=== PATIENT | female | born 1985 ===

== ENCOUNTER 2017-02-22 10:23 | Emergency (ER) | payer MEDICAID, OTHER ==
[2017-02-02 13:09] VITALS: BMI 43.2
--- NOTE | 2017-02-22 11:35 | OBHP ---
Datetime: 02/22/2017 11:27 IP Adm Impression: , intrauterine ; No Active Labor IP Admit Plan: Discharge home Admit Comment, IP Provider: chief complaint- evaluation HPI 31 y/o female at 36 weeks and 6 days with hx of previous csection sent over from clinic for fe robert evaluation Patient denies nausea, vomiting, chest apin, shortness of breath Patient states that she feels soem discomfort when she walks but improves with rest. Exam VSS Afebrile FHT reactive Tooc no ctx Abdomen soft; no rebound or guarding.On eaxm reporst discofmort at site of pubic symphysis when sh e walks A/P Patient at 36.6 wga here for NST.Discomfort due to pubic symphysis separation.no contractions on monitor.no active labor -nst reactive -patient discharghed home -follow up in clinic next week -patient given active labor, decraesed movement precuations Pelvic Type - PN: Adequate Extremities - PN: Normal Abdomen - PN: Normal Back - PN: Normal Lungs - PN: Normal Heart - PN: Normal General - PN: Normal Vital Signs Provider: Reviewed; Within Normal Limits IP Chief Complaint: Other FHR Category Provider Fetus A: Category I Dilatation, Provider: 0 DTRs - PN: Normal
[2017-02-22 12:15] VITALS: BP 94/59; PULSE 83; RESP 18; TEMP 97; O2SAT 100
== END 2017-02-22 11:55 | disposition home or self-care (01) ==
LOC: C.EROB 10:23
DX: Z36 Encounter for antenatal screening of mother (principal)

== ENCOUNTER 2017-03-09 08:47 | Inpatient (IN) | payer MEDICAID ==
[2017-03-10 06:12] VITALS: BMI 42.4
[2017-03-10] MEDS ORDERED: Lactated Ringer's 1,000 ML IV ONE (06:13)
--- NOTE | 2017-03-10 06:55 | OBADHP ---
Datetime: 03/10/2017 06:42 Admit Comment, IP Provider: 31 y.o. LMP 05/24/16, NIDIA 03/16/17. EGA 39w 1d presents for repe at C/S. (+) AFM; denies LOF, VB; (+) Ctx tim and off x 1 week. care: [facility] - per patient no issues. 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 With FOB x 2 years; lives with hm and son. Unemp loyed Fam Hx: Mother alive 47 y.o.; Father alive 49 y.o. - both, no med issues. No known fam h/o cancer P.E.: as above. Obese, in NAD. Awake, alert, oriented to time, person and place. Pleasant and coop erative Assessment: 31 y.o. P1, 39w 1d, prev C/S for elective C/S. Category 1 tracing. Patient last ate 20 00 hour and drank 2140 hours 03/09/17. Patient is clinically stable. Plan: 1) Admit 2) NPO 3) Admisssion labs 4) Continuous EFM 5) Silverio 6) Abdominal prep and shave 7) Mefoxin chief controller to O.R. 8) Notify peds 9) Notify anesthesia 10) Critical Care Unit Nurse to O.R. Pelvic Type - PN: Adequate Extremities - PN: Normal Abdomen - PN: Normal Back - PN: Normal Breast - PN: Not Done Lungs - PN: Normal Heart - PN: Normal Thyroid - PN: Not Done Neurologic - PN: Normal HEENT - PN: Normal General - PN: Normal Presentation-Admit: Vertex FHR - Baseline A Provider: 140 Contraction Comments Provider: none Comments, ACOG Physical Exam: Abdomen: Soft. Gravid. Healed Pfannenstiel scar. Fundal height 40cm All other systems reviewed and are negative Gestation - Est Wks by US: 39w 1d IP Hx Assessment: The History has been Reviewed and is Current Vital Signs Provider: Reviewed IP Chief Complaint: Scheduled Section NICHD Variability Prov Fetus A: Moderate 6-25bpm NICHD Accel Fetus A IP Provider: [id number] FHR Category Provider Fetus A: Category I NICHD Decel Fetus A IP Provider: None Dilatation, Provider: 2 Effacement, Provider: 30 Station, Provider: -3 Genitourinary Exam: Normal DTRs - PN: Not Done EGA AdmitDate IP: 39.1 IP Adm Impression: Term, intrauterine ; No Active Labor; Ruptured Membranes IP Admit Plan: Admit to unit; Initiate Section protocol
[2017-03-10] MEDS ORDERED: Sodium Citrate/Citric Acid 15 ml Sol PO ONE (07:00)
[2017-03-10 07:14] LABS: RBC URINE < 1 /hpf (0-3); URINE BACTERIA RARE (<OCC); URINE BILIRUBIN NEGATIVE (NEGATIVE); URINE BLOOD NEGATIVE (NEGATIVE); URINE COLOR Yellow (YELLOW); URINE GLUCOSE (UA) NORMAL (Normal); URINE KETONE NEGATIVE (NEGATIVE); URINE LEUKOCYTE ESTERASE TRACE Leu/uL (Negative); URINE PROTEIN NEGATIVE (NEGATIVE); URINE UROBILINOGEN NORMAL mg/dL (0.2-1.0); WBC URINE 2 /hpf (0-5)
[2017-03-10 07:21] LABS: HEMATOCRIT 35.5 % (34.0-47.0); MEAN CELL VOLUME 87.1 fL (81.0-99.0); MEAN CORPUSCULAR HEMOGLOBIN 30.4 pg (27.0-31.0); MEAN CORPUSCULAR HGB CONC 34.9 g/dL (33.0-37.0); MEAN PLATELET VOLUME 9.6 fL (7.2-11.7); RED CELL DISTRIBUTION WIDTH 13.6 % (11.5-14.5); WHITE BLOOD COUNT 9.8 K/uL (4.8-10.8)
[2017-03-10] MEDS ORDERED: Sodium Citrate/Citric Acid 15 ml Sol ONE (07:22)
[2017-03-10] MEDS ORDERED: cefOXitin IV 2 gm in Dextrose 2 GM/50 ML BAG IVPB ONE ×2 (07:24→07:28)
[2017-03-10 07:46] LABS: ALB/GLOB RATIO 0.9 (1.0-2.1); ALKALINE PHOSPHATASE 202 U/L (38-126); ALT/SGPT 24 U/L (9-52); AST/SGOT 21 U/L (14-36); BILIRUBIN,TOTAL 0.9 mg/dL (0.2-1.3); BLOOD UREA NITROGEN 7 mg/dL (7-17); CALCIUM 8.7 mg/dl (8.6-10.4); CARBON DIOXIDE 20 mmol/L (22-30); CHLORIDE 105 mmol/L (98-107); GFR AFRICAN-AMERICAN > 60; GLUCOSE,RANDOM 95 mg/dL (65-105); POTASSIUM 3.8 mmol/L (3.6-5.2); SODIUM 137 mmol/L (132-148); TOTAL PROTEIN 6.4 g/dL (6.3-8.3)
[2017-03-10] MEDS ORDERED: Morphine 1 mg/ml preservative-free Inj(Duramorph) ONE (07:51)
[2017-03-10] MEDS ORDERED: Oxytocin 20 units in LR 2,000 ML IV ONE (07:51)
[2017-03-10] MEDS ORDERED: Oxytocin 10 Units/ml Inj ONE (07:51)
[2017-03-10] MEDS ORDERED: Oxycodone/Acetaminophen 5/325 mg Tab PO PRN ×2 (07:59)
--- NOTE | 2017-03-10 08:03 | PCM.SURG1 ---
Surgeon's Initial Post Op Note - Surgeon's Notes Surgeon: dr harris C.O.D. Clerk: dr caputo Type of Anesthesia: Spinal Anesthesia Administered By: dr sanabria Pre-Operative Diagnosis: 31 yr at 39weeks previous section Operative Findings: see the op report Post-Operative Diagnosis: same Operation Performed: repeat sectiion Specimen/Specimens Removed: cord blood. placente Estimated Blood Loss: EBL {In ML}: 800 Blood Products Given: N/A Drains Used: No Drains Post-Op Condition: Good Date of Surgery/Procedure: 03/10/17 Time of Surgery/Procedure: 08:30
[2017-03-10] MEDS ORDERED: DiphenhydrAMINE 50 mg/ml Inj IVP PRN (09:24)
[2017-03-10] MEDS ORDERED: DiphenhydrAMINE 50 mg/ml Inj ONE (09:53)
[2017-03-10] MEDS: Simethicone 80 mg Chewtab PO SCH ×3 (16:46→21:23)
[2017-03-10] MEDS ORDERED: DiphenhydrAMINE 50 mg/ml Inj IVP STA (20:36)
--- NOTE | 2017-03-11 07:47 | OP ---
PROCEDURE DATE: 03/10/2017 PREOPERATIVE DIAGNOSIS: A 31-year-old 2, para 1 at 39 weeks, for scheduled for repeat section. POSTOPERATIVE DIAGNOSIS: A 31-year-old 2, para 1 at 39 weeks, for scheduled for repeat section. SURGEON: Dr. Peters. OCEAN LIFEGUARD SPECIALIST: Dr. Kc, who was present throughout the surgery for exposure, retraction, pushing at the time of delivery. TYPE OF ANESTHESIA: Spinal. ANESTHESIOLOGIST: Dr. Reyes. COMPLICATIONS: None. ESTIMATED BLOOD LOSS: 800 mL OPERATION PERFORMED: Repeat section. DESCRIPTION OF PROCEDURE: After informed consent was obtained, the patient was brought to the operating room, placed on the table, where spinal anesthesia was given. When anesthesia was found to be sufficient, she was prepped and draped in normal sterile fashion. Then supporting over the Bovie, the fascia was excised on both the sides using curved Herring scissors. The fascia was first from the site of the umbilicus and then at the side of the pubic bone. Rectus muscle was lift up with two Allis and then with a knife, then the peritoneum was lifted up, but they were taken with the peritoneum, was taken out by the Allis and then it was cut with the Metzenbaum. It was resected down. Then the bladder blade was placed, bladder flap was created. Lower uterine segment incision was made with a knife, the lower *------* cut with the knife and both the sides using curved Herring scissors. Baby delivered in ARYA position. Cord was clamped and cut. Baby was handed to the awaiting electric fan assembler. After that, uterus was exteriorized and cleared of all the clots and debris, placenta delivered manually. A lot of massage was done. Pitocin was given. Then, uterine incision was closed with #1 Vicryl running interlocking fashion. Second layer was closed with the same stitch. Cul-de-sac was cleared of all the clots and debris. Uterus was returned back to the abdominal cavity *------* normal, then *------* was placed. Peritoneum was closed using 2-0 Vicryl in running interlocking fashion. Muscle was closed using 2-0 Vicryl in running interlocking fashion. Fascia was closed using #1 Vicryl in running interlocking fashion. Subcutaneous tissue was closed with 0 Vicryl in interrupted fashion. Skin was closed using david. The patient tolerated the procedure well. Lap, sponge, and instrument counts were correct x2. Pancho Peters MD
[2017-03-11] MEDS ORDERED: Bisacodyl 5mg EC Tab PO ONE (08:01)
[2017-03-11 08:21] LABS: HEMATOCRIT 33.6 % (34.0-47.0); MEAN CELL VOLUME 87.7 fL (81.0-99.0); MEAN CORPUSCULAR HEMOGLOBIN 29.4 pg (27.0-31.0); MEAN CORPUSCULAR HGB CONC 33.5 g/dL (33.0-37.0); MEAN PLATELET VOLUME 9.8 fL (7.2-11.7); RED CELL DISTRIBUTION WIDTH 13.7 % (11.5-14.5); WHITE BLOOD COUNT 14.5 K/uL (4.8-10.8)
[2017-03-11] MEDS: Simethicone 80 mg Chewtab PO SCH ×4 (10:20→22:22)
--- NOTE | 2017-03-11 13:42 | OBPPN ---
Datetime: 03/11/2017 11:18 PP Pain Prov: Within normal limits PP Nausea Prov: Denies PP Flatus Prov: Yes PP BM Prov: No PP Heart Prov: Normal PP Lungs Prov: Normal PP Abdomen/Uterus Prov: Normal PP Vulva/Perineum Prov: Normal PP CVA Tenderness Prov: Normal PP C/S Incision Prov: Normal PP Progress Prov: Normal PP Impression Prov: Normal progression PP Plan Prov: Continue present management PP Progress Note Prov: S-patient denies any compalints.reports that pain siw ell controlled.tolerati ng diet.ambulating and voiding without difficulty.Passing flatus O-VSS Afebrile Fundus firm and below umbiclisu dressing celan,d ry and intact extremities no calf tenderness A/P Patient /p cscetion pod 1 doing well -continue routine post op care Vital Signs Provider PP: Reviewed; Within Normal Limits
[2017-03-12 08:14] VITALS: RESP 18
[2017-03-12] MEDS: Simethicone 80 mg Chewtab PO SCH ×4 (09:30→22:18)
--- NOTE | 2017-03-12 14:24 | OBPPN ---
Datetime: 03/12/2017 14:12 PP Pain Prov: Within normal limits PP Nausea Prov: Denies PP Flatus Prov: Yes PP BM Prov: Yes PP Breasts Prov: Normal PP Heart Prov: Normal PP Lungs Prov: Normal PP Abdomen/Uterus Prov: Normal PP Lochia Prov: Normal PP Vulva/Perineum Prov: Not Done PP CVA Tenderness Prov: Normal PP Extremities Prov: Normal PP C/S Incision Prov: Normal PP Progress Prov: Normal PP Comments Phys Exam Prov: Breasts: large, symmetric; no cracked nipples Abdomen: Obese. Soft, non distended. Fundus firm, mobile, non tender, 3 FB below umbilicus. Incisi on with david - clean, dry and intact. Mild lochia rubra Extremities: (+) LE edema; no calf tenderness. All other systems reviewed and are negative. PP Impression Prov: Normal progression PP Plan Prov: Continue present management PP Progress Note Prov: Patient received in chair; no complaints: Breast- and bottlefeeding. Ambulati ng and voiding without difficulty. Denies nausea, vomiting. P.E.: as above. Obese, in NAD. Awake, alert, oriented to time, person and place. Pleasant and implementation project coordinator perative. , infant and first daughter also present. - POD#1 H/H 11.3/33.6; Rh (+) Assessment: POD#2, 31 P2, S/P repeat LTCS. Afebrile, vital signs stable. Returning GI and func tions. Clinically stable. Plan: 1) Continue present management 2) Anticipate discharge home 03/13/17 Vital Signs Provider PP: Reviewed; Within Normal Limits
--- NOTE | 2017-03-13 07:23 | OBDCSUM ---
Datetime: 03/13/2017 07:21 Discharged to, Provider: Home Follow up at, Provider: Clinic Disch Instr Activity: Normal activity Disch Instr Diet: Regular Discharge Instructions, Provider: Routine instructions given Discharge Diagnosis, Provider: Term Delivered Discharge Time: 03/13/2017 11:00 Follow up in weeks, Provider: 1 week Disch Referrals: None Contraception discussed, Prov: Yes Disch Activity Restrictions: No exercising; No sexual activity; Nothing in vagina - [place] Discharge Comment, Provider: If temperature greater than 100.4, heavy bleeding more than 2 pads/ radhames rs, pain, dizzyness, headachse, lighthteadness, CP, SOB, nause, vomiting to nearest ER and call MD Contraception after Delivery: Not Planning to Use
--- NOTE | 2017-03-13 07:29 | OBPPN ---
Datetime: 03/13/2017 07:23 PP Pain Prov: Within normal limits PP Nausea Prov: Denies PP Flatus Prov: Yes PP Breasts Prov: Normal PP Heart Prov: Normal PP Lungs Prov: Normal PP Abdomen/Uterus Prov: Normal PP Lochia Prov: Normal PP Vulva/Perineum Prov: Normal PP CVA Tenderness Prov: Normal PP Extremities Prov: Normal PP C/S Incision Prov: Normal PP Progress Prov: Normal PP Comments Phys Exam Prov: Gen: NAD, AAOx 3 Resp: CTAB/l CVS: RRR, +S1/S2 Breasts: large, symmetric; no cracked nipples, non tender, non engoarged Abdomen: Obese. Soft, non distended. Non tender, no guarding, no reboudn tenderness, no rigidity Fundus firm, non tender, below umbilicus. VE: minimal lochia, non foul smelling Incision with david - clean, dry and intact. Extremities: (+) LE edema +1; no calf tenderness, negative homans sign All other systems reviewed and are negative. PP Impression Prov: Normal progression PP Plan Prov: Discharge PP Progress Note Prov: Pt seen and examined and reports feeling well. Pt reports pain is controlled with pain medicatin. Pt denies any headaches, fevers, chills, nause, vomiting, CP, SOB. pt is abulati ng, voiding, passing flatus, +BM, breast feedign and deies any feelings of sadness or depression. pt reprots she has good social support. VSS PE: Gen: NAD, AAOx 3 Resp: CTAB/l CVS: RRR, +S1/S2 Breasts: large, symmetric; no cracked nipples, non tender, non engoarged Abdomen: Obese. Soft, non distended. Non tender, no guarding, no reboudn tenderness, no rigidity Fundus firm, non tender, below umbilicus. VE: minimal lochia, non foul smelling Incision with david - clean, dry and intact. Extremities: (+) LE edema +1; no calf tenderness, negative homans sign All other systems reviewed and are negative. A/P s/p PLTCS POD #3 doing well, stable for discharge d/c home f/u clinic 1 week for incisin check Precautions given IP PP Procedures: None Vital Signs Provider PP: Reviewed; Within Normal Limits
[2017-03-13 08:25] VITALS: BP 120/68; PULSE 83; O2SAT 100
[2017-03-13] MEDS: Simethicone 80 mg Chewtab PO SCH (09:16)
[2017-03-13 15:41] VITALS: TEMP 98
--- NOTE | 2017-03-23 06:59 | OBDS ---
DELIVERY PERSONNEL Delivery Doctor: Pancho Peters MD Scrub Nurse: Joan Beavers Polish Maker: Jia Ventura RN Anesthesiologist: Nba Reyes MD MATERNAL INFORMATION Delivery Anesthesia: Spinal Estimated Blood Loss (ml): 800 Placenta Cultured: No Maternal Complications: None RN Comments: post status repeat , liveborn baby boy, 9/9, mom and baby stable conditi on Provider Comments: baby deliverd in [place]. end clean no com LABOR SUMMARY EDC: 03/16/2017 00:00 LABOR INFORMATION Group B Beta Strep: Negative STAGES OF LABOR Stage 3 hrs: 0 Stage 3 min: 1 CSECTION DELIVERY Primary Indication: Repeat Elective Secondary Indication: Repeat Elective CSection Urgency: Elective CSection Incidence: Repeat BABY A INFORMATION Delivery Date/Time: 03/10/2017 08:24 Method of Delivery: Born in Route : No : N/A Forceps: N/A Vacuum Extraction: N/A Shoulder Dystocia : No SHOULDER DYSTOCIA BABY A Delivery Date/Time: 03/10/2017 08:24 PRESENTATION/POSITION BABY A Presentation: Cephalic Cephalic Presentation: Vertex Vertex Position: Left Occipital Anterior Breech Presentation: N/A PLACENTA INFORMATION BABY A Placenta Delivery Time : 03/10/2017 08:25 Placenta Method of Delivery: Manual Removal Placenta Status: Delivered SCORES BABY A Heart Rate 1 min: >100 bpm Resp Effort 1 min: Good Cry Reflex Irritability 1 min: Cough or Sneeze or Pulls Away Muscle Tone 1 min: Active Motion Color 1 min: Body [place], Extremities Blue Resuscitation Effort 1 min: Tactile Stimulation SCORE 1 MIN: 9 Heart Rate 5 min: >100 bpm Resp Effort 5 min: Good Cry Reflex Irritability 5 min: Cough or Sneeze or Pulls Away Muscle Tone 5 min: Active Motion Color 5 min: Body [place], Extremities Blue Resuscitation Effort 5 min: N/A SCORE 5 MIN: 9 INFANT INFORMATION BABY A Gestational Age at Delivery: 39.1 Gestational Status: Term Infant Outcome : Liveborn Condition : Stable Sex: Male IDENTIFICATION/MEDS BABY A ID Band Number: [id number] ID Band Location: Left Leg; Left Arm Sensor Applied: Yes Sensor Number: [id number] Sensor Location : Cord Clamp Vitamin K Given : Not Given Erythromycin Given: Not Given WEIGHT/LENGTH BABY A Birthweight (gms): 3315 Infant Weight (lb): 7 Infant Weight (oz): 5 Infant Length Inches: 18.50 Length cms: 47.0 CORD INFORMATION BABY A No. Cord Vessels: 3 Nuchal Cord : Around Neck x1, Loose Cord Blood Taken: Yes Infant Suction: Mouth; Nose
== END 2017-03-13 11:41 | disposition home or self-care (01) | DRG 371 ==
LOC: C.4D 08:47 → UNDOADMIN 08:47 → C.4D 03-10 05:48 → C.4M 03-10 13:03
PROVIDERS: ADMIT Obstetrics & Gynecology; ATTEND Obstetrics & Gynecology
PROC: 10D00Z1 Extraction of Products of Conception, Low, Open Approach (ICD-10-PCS; principal; 2017-03-10)
DX: O34.211 Maternal care for low transverse scar from previous cesarean delivery (principal); O99.214 Obesity complicating childbirth; E66.9 Obesity, unspecified; Z3A.39 39 weeks gestation of pregnancy; Z37.0 Single live birth

== ENCOUNTER 2018-12-04 09:27 | Outpatient (CLI) | payer OTHER | END 2018-12-04 09:28 | disposition home or self-care (01) | LOC: C.LAB 09:27 | DX: Z3A.35 35 weeks gestation of pregnancy (principal) ==

== ENCOUNTER 2018-12-11 09:23 | Outpatient (CLI) | payer OTHER | END 2018-12-11 09:24 | disposition home or self-care (01) | LOC: C.LAB 09:23 | DX: Z3A.36 36 weeks gestation of pregnancy (principal) ==

== ENCOUNTER 2018-12-26 07:26 | Inpatient (IN) | payer MEDICAID, OTHER, SELFPAY ==
[2018-12-26 07:47] VITALS: BMI 42.8
[2018-12-26] MEDS ORDERED: Lactated Ringer's 1,000 ML IV ONE (07:47)
[2018-12-26] MEDS ORDERED: cefOXitin IV 2 gm in Dextrose 2 GM/50 ML BAG IVPB ONE ×2 (07:47→08:31)
[2018-12-26] MEDS ORDERED: Sodium Citrate/Citric Acid 15 ml Sol PO ONE (07:47)
[2018-12-26 08:05] LABS: BASO % 0.3 % (0.0-2.0); EOS # 0.2 K/uL (0.0-0.7); HEMOGLOBIN 13.1 g/dL (11.0-16.0); LYMPH # 2.7 K/uL (1.0-4.3); LYMPH % 30.9 % (20.0-40.0); MEAN CELL VOLUME 89.9 fL (81.0-99.0); MEAN CORPUSCULAR HEMOGLOBIN 31.6 pg (27.0-31.0); MEAN CORPUSCULAR HGB CONC 35.2 g/dL (33.0-37.0); MEAN PLATELET VOLUME 10.2 fL (7.2-11.7); MONO # 0.6 K/uL (0.0-0.8); MONO % 7.2 % (0.0-10.0); NEUT # 5.3 K/uL (1.8-7.0); NEUT % 59.6 % (50.0-75.0); NRBC % 0.1 % (0.0-2.0); RBC 4.14 Mil/uL (3.80-5.20); RED CELL DISTRIBUTION WIDTH 14.1 % (11.5-14.5); WHITE BLOOD COUNT 8.9 K/uL (4.8-10.8)
[2018-12-26 08:21] LABS: SQUAMOUS EPITHIAL 12 /hpf (0-5); URINE BILIRUBIN NEGATIVE (NEGATIVE); URINE BLOOD NEGATIVE (NEGATIVE); URINE CLARITY Hazy (Clear); URINE COLOR Yellow (YELLOW); URINE GLUCOSE (UA) NORMAL (Normal); URINE LEUKOCYTE ESTERASE NEG Leu/uL (Negative); URINE PROTEIN NEGATIVE (NEGATIVE); URINE UROBILINOGEN NORMAL mg/dL (0.2-1.0)
[2018-12-26] MEDS ORDERED: Sodium Citrate/Citric Acid 15 ml Sol ONE (08:31)
[2018-12-26] MEDS ORDERED: Oxytocin 20 units in LR 2,000 ML IV ONE (08:31)
[2018-12-26] MEDS ORDERED: Morphine 1 mg/ml preservative-free Inj(Duramorph) ONE (11:47)
[2018-12-26] MEDS ORDERED: BUPIVACAINE 0.125%/0.9% NACL 600 ML IJ ONE (12:30)
[2018-12-26] MEDS ORDERED: Lidocaine 2% MPF (5 ml) Inj ONE ×3 (13:09→13:22)
[2018-12-26] MEDS ORDERED: Phenylephrine 10 mg/ml Inj ONE (13:17)
--- NOTE | 2018-12-26 17:25 | OBDS ---
DELIVERY PERSONNEL Delivery Doctor: Director Of Sports Medicine: Lavonne Shabazz RN Anesthesiologist: MATERNAL INFORMATION Delivery Anesthesia: Spinal Medications in Delivery: Mefoxin 2 gms ivpb Estimated Blood Loss (ml): 600 Placenta Cultured: No Maternal Complications: None RN Comments: Repeat LTC/S @1236 a live male attended by Uyen Vazquez.Dried immediately,stimula te 9/9 No abnormalities noted Provider Comments: Repeat LTC C/S with delivery of a viable male from JAVI position and witho ut complications. Apgars 9_9 at 1 and 5 minutes repectively and BW of 7lbs, 6 oz. Cord Blood and cord PH obtained and sent. Placenta with 3 VC manually delivered and discarded Bilateral complete transection of Fallopian Tubes with Ligatures and sent to Pathology. ARYA. EBL 600 mls On-Q [place] was inserted x 2 and without complications and working well Pt and tolerated the procedure well and remained in OR room in S_S condition Dr. Kc was present throughout the entire procedure as an mortgage loan assistant as well as Dr. Recinos, Res ident and Med Student Wilmer Giraldo. LABOR SUMMARY EDC: 12/19/2018 00:00 No. Babies in Womb: 1 Attempted: No Labor Anesthesia: Intrathecal LABOR INFORMATION Reason for Induction: Not Applicable Oxytocin: N/A Group B Beta Strep: Done, Result Unknown Antibiotics # of Doses: 1 Steroids Given: None Reason Steroids Not Administered: Not Applicable MEMBRANES Membranes Rupture Method: Artificial Rupture of Membranes: 12/26/2018 12:35 Length of Rupture (hrs): 0.02 Amniotic Fluid Color: Clear Amniotic Fluid Amount: Moderate Amniotic Fluid Odor: Normal STAGES OF LABOR Stage 3 hrs: 0 Stage 3 min: 1 CSECTION DELIVERY Primary Indication: Repeat Elective Secondary Indication: BTL CSection Urgency: Elective CSection Incidence: Repeat Labor: No Labor Elective: Elective CSection Incision: Lower Uterine Transverse BABY A INFORMATION Delivery Date/Time: 12/26/2018 12:36 Method of Delivery: Born in Route : No : N/A Forceps: N/A Vacuum Extraction: N/A Shoulder Dystocia : No SHOULDER DYSTOCIA BABY A Infant Delivery Date/Time: 12/26/2018 12:36 PRESENTATION/POSITION BABY A Presentation: Cephalic Cephalic Presentation: Vertex Vertex Position: Right Occipital Anterior Breech Presentation: N/A PLACENTA INFORMATION BABY A Placenta Delivery Time : 12/26/2018 12:37 Placenta Method of Delivery: Manual Removal Placenta Status: Delivered SCORES BABY A Heart Rate 1 min: >100 bpm Resp Effort 1 min: Good Cry Reflex Irritability 1 min: Cough or Sneeze or Pulls Away Muscle Tone 1 min: Active Motion Color 1 min: Body [place], Extremities Blue SCORE 1 MIN: 9 Heart Rate 5 min: >100 bpm Resp Effort 5 min: Good Cry Reflex Irritability 5 min: Cough or Sneeze or Pulls Away Muscle Tone 5 min: Active Motion Color 5 min: Body [place], Extremities Blue SCORE 5 MIN: 9 INFORMATION BABY A Gestational Age at Delivery: 41.0 Gestational Status: Term Outcome : Liveborn Infant Condition : Stable Infant Sex: Male IDENTIFICATION/MEDS BABY A ID Band Number: [id number] Sensor Number: [id number] WEIGHT/LENGTH BABY A Infant Birthweight (gms): 3335 Infant Weight (lb): 7 Weight (oz): 6 Infant Length Inches: 19.00 Infant Length cms: 48.3 CORD INFORMATION BABY A No. Cord Vessels: 3 Nuchal Cord : Around Neck x1, Loose Infant Cord pH Baby Venous: yes Cord Blood Taken: Yes Suction: Mouth; Nose
[2018-12-26] MEDS: cefOXitin IV 2 gm in Dextrose 2 GM/50 ML BAG IVPB SCH (20:50)
[2018-12-26] MEDS: Docusate-Senna 50 mg-8.6 mg Tab PO SCH (22:08)
[2018-12-26] MEDS: Simethicone 80 mg Chewtab PO SCH (22:08)
[2018-12-27] MEDS: cefOXitin IV 2 gm in Dextrose 2 GM/50 ML BAG IVPB SCH (03:12)
[2018-12-27] MEDS ORDERED: DiphenhydrAMINE 50 mg/ml Inj IVP STA ×3 (06:34→10:09)
[2018-12-27] MEDS ORDERED: DiphenhydrAMINE 50 mg/ml Inj ONE (06:53)
[2018-12-27 08:18] LABS: HEMOGLOBIN 12.5 g/dL (11.0-16.0); MEAN CELL VOLUME 89.8 fL (81.0-99.0); MEAN CORPUSCULAR HEMOGLOBIN 31.2 pg (27.0-31.0); MEAN CORPUSCULAR HGB CONC 34.8 g/dL (33.0-37.0); RED CELL DISTRIBUTION WIDTH 13.9 % (11.5-14.5); WHITE BLOOD COUNT 12.1 K/uL (4.8-10.8)
[2018-12-27] MEDS: Prenatal Multivit/Folic Acid/Iron Tab PO SCH (10:07)
[2018-12-27] MEDS: Simethicone 80 mg Chewtab PO SCH ×3 (10:07→17:20)
--- NOTE | 2018-12-27 22:28 | OBPPN ---
Datetime: 12/27/2018 14:23 PP Pain Prov: Within normal limits PP Nausea Prov: Denies (Annotations: Data stored by CPN on behalf of user) PP Flatus Prov: Yes PP BM Prov: No PP Breasts Prov: Not Done PP Heart Prov: Normal PP Lungs Prov: Normal PP Abdomen/Uterus Prov: Normal PP Lochia Prov: Not Done PP Vulva/Perineum Prov: Not Done PP CVA Tenderness Prov: Not Done PP Extremities Prov: Normal PP C/S Incision Prov: Normal PP Progress Prov: Normal PP Impression Prov: Normal progression; difficulties; Pain PP Plan Prov: Continue present management PP Progress Note Prov: Patient is a 33 y/o female who is postop day 1 s/p scheduled repeat cesarian and tubal ligation. Patient is feeling well today, but patient reports pain 4/10 in severity worse with movement. Patient used 4-5x pads overnight and states bleeding less today. Theodora yuan was able to get up to urinate and is passing flatus. Patient is ambulating around her room and need ed encouragement to use the incentive spirometer. Patient is on a liquid diet and tolerating it well. Patient reports pain and difficulty getting baby to latch and has been bottle feeding exclusively. P atient denies nausea/vomiting, diarrhea/constipation, dizziness, and headache. Vitals: T 98.3, HR 72, BP 113/76, RR 18, O2 sat 97% on room air Gen rosemarie: NAD, AAOx3 Cardio: RRR, +s1, +s2, no murmurs/gallops/rubs Resp: CTA +b/l, no r/r/w Abd: soft, tender, firm uterus, bowel sounds present in all 4 quadrants Ext: no edema, no calf tenderness Fundus: 19cm Labs: Hb 12.5, hct 35.9 , WBC 12.1, platelets 200, and Rh + Assessment postop day 1 s/p scheduled repeat cesarian with tubal ligation. Pt hemodynamically stable. Vital signs stable. Plan 1. Encourage pt to ambulate and use incentive spirometer. 2. Encouraged breast feeding with help of professional services consultant. 3. Encourage PO fluids. Patient seen and case discussed with Dr. Gokul Velazquez, OMS-III Attending Note: Patient seen, evaluated and examined by me with the medical student. I agree with the documentaiton as above. NB: patient using ON-Q fsystem for pain management - satisiying response. Incision with david - clean dry and intact. ON-Q sites - clean and non tender. Plan: 1) As above. Vital Signs Provider PP: Reviewed; Within Normal Limits
[2018-12-28 00:13] VITALS: RESP 20
[2018-12-28] MEDS: Prenatal Multivit/Folic Acid/Iron Tab PO SCH (10:34)
[2018-12-28] MEDS: Simethicone 80 mg Chewtab PO SCH ×4 (13:53→21:57)
--- NOTE | 2018-12-28 19:32 | OBPPN ---
Datetime: 12/28/2018 08:41 PP Pain Prov: Within normal limits PP Nausea Prov: Denies PP Flatus Prov: Yes (Annotations: Data stored by CPN on behalf of user) PP BM Prov: Yes PP Breasts Prov: Not Done PP Heart Prov: Normal PP Lungs Prov: Normal PP Abdomen/Uterus Prov: Normal PP Lochia Prov: Normal PP Vulva/Perineum Prov: Not Done PP CVA Tenderness Prov: Not Done PP Extremities Prov: Normal PP C/S Incision Prov: Normal PP Progress Prov: Normal PP Impression Prov: Normal progression; difficulties; Pain PP Plan Prov: Continue present management; consult PP Progress Note Prov: Pt is a 33 y/o female postop day 2 s/p scheduled repeat cesa cara and tubal ligation. Patient was laying in bed and feels well this morning. Patient reported a 6/ 10 in severity in pain that occurred last night and also pain in her L inguinal area. Patient reports 2 pad changes overnight. Patient is breast feeding and supplementing with formula because "the baby is still hungry". Patient denies nausea/vomiting, diarrhea, dizziness, headache, pruritis, and chest pain. Vitals: T 97.8 F BP 108/55 HR 75 RR 20 O2 sat 99% Gen rosemarie: NAD, AAOx3 Cardio: RRR, +s1, +s2. no murmurs/gallops/rubs Resp: CTA +b/l, no r/r/w Abd: soft, tender, firm uterus, bowel sounds present in all 4 quadrants Ext: no edema, no calf tenderness Fundus: 19 cm Assessment postop day 2 s/p repeat cesarian with tubal ligation. Pt is hemodynamically stable. Plan 1. Continue to increase PO water intake. 2. Encouraged ambulation and incentive spirometry. 3. Require patient education on nutrition. consult ordered 4. Advance care Trena Velazquez, OMS-III Pt seen and examined with Med Student Caroline and agreed with all of her findings, assessments and POC
[2018-12-28] MEDS: Docusate-Senna 50 mg-8.6 mg Tab PO SCH (21:57)
[2018-12-29] MEDS: Simethicone 80 mg Chewtab PO SCH (10:54)
[2018-12-29] MEDS: Prenatal Multivit/Folic Acid/Iron Tab PO SCH (10:54)
--- NOTE | 2018-12-29 18:19 | OBDCSUM ---
Datetime: 12/29/2018 12:05 Discharged to, Provider: Home Follow up at, Provider: VERITO Disch Instr Activity: May be up to bathroom; May be up for meals; May Shower Disch Instr Diet: Regular Discharge Instructions, Provider: Routine instructions given Discharge Diagnosis, Provider: Term Delivered Discharge Time: 12/29/2018 12:05 Follow up in weeks, Provider: 3-5 days Disch Referrals: None Disch Activity Restrictions: No sexual activity; Nothing in vagina - [place], tampons, douche Discharge Comment, Provider: 33F POD # 3 s/p C/s _ tubal ligation. Pt reports feeling well, passage of bowel movements, flatulence, minimal to no pain, denies N/V, F/C. Tolerating diet, ambulat ing. Vitals: 97.2 69 100/69 Gen: Atraumatic, normocephalic Cardio: S1, S2, no murmurs Resp: CTAL, B/L Abd: soft non tender, Onq in place, fundal height 2 finger below umbilicus A/P 33F PPD # 3 s/p C/s _ tubal ligation. Stable H/H, Pt is hemodynamically stable for dischar ge. OnQ removed with hemostasis obtained and band-aids placed over incision sites - stable for discharge with Rx's for Motrin and Percocet - instructions provided in [employer] Contraception after Delivery: Tubal Ligation
[2018-12-29 19:15] VITALS: BP 106/71; PULSE 73; TEMP 99; O2SAT 100
--- NOTE | 2019-01-01 19:09 | OBADHP ---
Datetime: 12/26/2018 08:23 Admit Comment, IP Provider: CC: Scheduled Caesarean Section HPI: Patient is a 33 year old at 41 weeks with NIDIA (12/31/18) and LMP ( 02/28/18), who presen ts to [facility] for scheduled repeat . Estimated gestational age is approx. 39 weeks 2 days. Jackelyn ent denies any vaginal bleeding, loss of fluid, cramping or contractions. Patient states that fetus i s moving. Patient reports increased urinary frequency (every 1/2 hour), and drinks approx. 4 16oz gla sses of water per day. Patient recieved her care at [facility] and pablo es any antepartum complications. OB Hx: 1. Male , term, , fail of induction at [facility], 8.5lbs, [facility] [place], no complications, 01/03/15 2. Male , term, , [facility], 7.5lbs, no complications, 03/02/17 No Hx of transfusion [employer] Hx: Menarche 13 years old Triad: 11/Irregular period intervals (1mo - 3mo)/5 days Denies history of STD's, fibroids, ovarian cysts Admits to hx of normal pap smears Med Hx: none Fam Hx: father- gastritis; mother- none Surg Hx: none Medications: vitamins Allergies: NKDA Social Hx: Unemployed, not , Lives wtih kids and partner, denies anxiety/depression A/P: Patient is a 33 year old at 41 weeks with NIDIA (12/31/18) and LMP ( 02/28/18), who prese nts to [facility] for scheduled repeat : 1. Admit to the units 2. CEFM and TOCO 3. Admission orders: See admission orders 4. Silverio insertion 5. Preoperative medications: Pepcid, Sodium citrate and Cefoxitin 2gm once 6. Anesthesia consult 7. NST reactive All plans and management discussed with Dr. Giordano Pelvic Type - PN: Adequate Extremities - PN: Normal Abdomen - PN: Normal Back - PN: Normal Breast - PN: Not Done Lungs - PN: Normal Heart - PN: Normal Thyroid - PN: Normal Neurologic - PN: Normal HEENT - PN: Normal General - PN: Normal Presentation-Admit: Vertex FHR - Baseline A Provider: 130 Membranes, Provider: Intact Comments, ACOG Physical Exam: Vitals: HR- RR- BP- O2- BMI- PE: General: A/O x 3; no acute distress Cardio: RRR; no murmurs, rubs, gallops Pulm: CTA b/l; no rales rhonchi wheezing Abdomen: gravid, fundal height approx. 39" Extremities: no edema present EFM: 140s, + accelerations TOCO: Irritability Gestation - Est Wks by US: 41.0 IP Chief Complaint: Scheduled Section NICHD Variability Prov Fetus A: Moderate 6-25bpm NICHD Accel Fetus A IP Provider: [id number] FHR Category Provider Fetus A: Category I NICHD Decel Fetus A IP Provider: None Genitourinary Exam: Normal DTRs - PN: Normal EGA AdmitDate IP: 41.0 IP Adm Impression: Postterm, intrauterine ; No Active Labor; Intact Membranes IP Admit Plan: Admit to unit; Initiate Section protocol
== END 2018-12-29 15:10 | disposition hospice, home (50) | DRG 540 ==
LOC: C.EROB 07:26 → C.4D 07:47 → C.4M 16:20
PROVIDERS: ADMIT Obstetrics & Gynecology; ATTEND Obstetrics & Gynecology
PROC: 10D00Z1 Extraction of Products of Conception, Low, Open Approach (ICD-10-PCS; principal; 2018-12-26)
PROC: 0UB70ZZ Excision of Bilateral Fallopian Tubes, Open Approach (ICD-10-PCS; 2018-12-26)
DX: O34.211 Maternal care for low transverse scar from previous cesarean delivery (principal); O69.81X0 Labor and delivery complicated by cord around neck, without compression, not applicable or unspecified; Z30.2 Encounter for sterilization; Z3A.39 39 weeks gestation of pregnancy; Z37.0 Single live birth